=== PATIENT | female | born 2000 | race Caucasian/White ===

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

== ENCOUNTER 2022-08-28 12:49 | Emergency (ER) | payer BC, OTHER ==
[2022-08-28] MEDS ORDERED: TRANEXAMIC ACID 1,000 MG/10 ML VIAL MISCELLANE ONE (13:31)
[2022-08-28] MEDS ORDERED: OXYMETAZOLINE 0.05% NASL SPRAY 1 SPRAY BOTTLE NASAL STA (13:31)
--- NOTE | 2022-08-28 14:07 | ED ---
ENT HPI - General Chief complaint: ENT Stated complaint: epistaxis Time Seen by Provider: 08/28/22 13:13 Source: patient Mode of arrival: ambulatory Limitations: no limitations - History of Present Illness Initial comments: 21-year-old female who presents emergency department reporting nosebleed. Sudden onset today while at work at 11:20 AM. States that she placed compression to the site however nosebleed continued for over 2 hours. She does get frequent nosebleeds. Denies any trauma. Has been sitting with a humidifier in room. Has never seen an ENT. She denies any recent upper respiratory infections. Does not take any blood thinners. No history of blood clotting disorders. Bleeding has stopped upon my exam. No other alleviating, preci pitating or modifying factors - Related Data Home Medications Medication Instructions Recorded Confirmed Etonogestrel [Nexplanon] 1 implant SQ [id number] 04/14/20 08/28/22 Allergies Allergy/AdvReac Type Severity Reaction Status Date / Time amoxicillin [From Augmentin] Allergy Itching Verified 08/28/22 14:02 clavulanic acid Allergy Itching Verified 08/28/22 14:02 [From Augmentin] Review of Systems ROS Statement: Those systems with pertinent positive or pertinent negative responses have been documented in the HPI. ROS Other: All systems not noted in ROS Statement are negative. Past Medical History Past Medical History: No Reported History Additional Past Medical History / Comment(s): IBS History of Any Multi-Drug Resistant Organisms: None Reported Past Surgical History: No Surgical Hx Reported Past Anesthesia/Blood Transfusion Reactions: No Reported Reaction Past Psychological History: No Psychological Hx Reported Smoking Status: Never smoker Past Alcohol Use History: None Reported Past Drug Use History: None Reported - Past Family History Mother Family Medical History: No Reported History General Exam Limitations: no limitations General appearance: alert, in no apparent distress Head exam: Present: atraumatic, normocephalic, normal inspection Eye exam: Present: normal appearance, PERRL, EOMI. Absent: scleral icterus, conjunctival injection, periorbital swelling ENT exam: Present: other (Prominent vasculature bilateral nares with mild oozing. No posterior pharyngeal bleeding. No pulsatile bleeding) Neck exam: Present: normal inspection Respiratory exam: Present: normal lung sounds bilaterally. Absent: respiratory distress, wheezes, rales, rhonchi, stridor Cardiovascular Exam: Present: regular rate, normal rhythm, normal heart sounds. Absent: systolic murmur, diastolic murmur, rubs, gallop, clicks Psychiatric exam: Present: normal affect, normal mood Course Vital Signs 08/28/22 08/28/22 12:58 14:17 Temperature 98.1 F 97.6 F Pulse Rate 111 H 110 H Respiratory 20 16 Rate Blood Pressure 119/82 114/73 O2 Sat by Pulse 99 100 Oximetry Medical Decision Making - Medical Decision Making Was pt. sent in by a medical professional or institution ([facility], [facility], urgent care, hospital, or residential...) When possible be specific @ -No Did you speak to anyone other than the patient for history (EMS, parent, family, police, friend...)? What history was obtained from this source @ -No Did you review nursing and triage notes (agree or disagree)? Why? @ -I reviewed and agree with nursing and triage notes Were old charts reviewed (outside hosp., previous admission, EMS record, old EKG, old radiological studies, urgent care reports/EKG's, residential records)? Report findings @ -No old charts were reviewed Differential Diagnosis (chest pain, altered mental status, abdominal pain women, abdominal pain men, vaginal bleeding, weakness, fever, dyspnea, syncope, headache, dizziness, GI bleed, back pain, seizure, CVA, palpatations, mental health, musculoskeletal)? @ -trauma, clotting disorder, nasal dryness, spontaneous epistaxis EKG interpreted by me (3pts min.). @ -Not done X-rays interpreted by me (1pt min.). @ -None done CT interpreted by me (1pt min.). @ -None done U/S interpreted by me (1pt. min.). @ -None done What testing was considered but not performed or refused? (CT, X-rays, U/S, labs)? Why? @ -None What meds were considered but not given or refused? Why? @ -None Did you discuss the management of the patient with other professionals (professionals i.e. [facility] Benav[facility]z, [facility], lab, RT, psych nurse, child protective services social worker, tube coverer, teacher, workplace rehabilitation officer, pillowcase turner)? Give summary @ -No Was smoking cessation discussed for >3mins.? @ -No Was critical care preformed (if so, how long)? @ -No Were there social determinants of health that impacted care today? How? (Homelessness, low income, unemployed, alcoholism, drug addiction, transportation, low edu. Level, literacy, decrease access to med. care, [facility], rehab)? @ -No Was there de-escalation of care discussed even if they declined (Discuss DNR or withdrawal of care, Hospice)? DNR status @ -No What co-morbidities impacted this encounter? (DM, HTN, Smoking, COPD, CAD, Cancer, CVA, ARF, Chemo, Hep., AIDS, mental health diagnosis, sleep apnea, morbid obesity)? @ -None Was patient admitted / discharged? Hospital course, mention meds given and route, prescriptions, significant lab abnormalities, going to OR and other pertinent info. @ -Upon arrival patient is placed in room 32. Thorough history and physical exam was performed. There is some slight oozing bilaterally however patient has no romero bleeding at this time. She is able to get up and ambulate without any bleeding. I did apply some Afrin in the nose as well as some TXA. She will be given referral to ENT. Instructed to continue using the humidifier. Purchase bacitracin and lightly apply on the inside of the nose to keep it moist. Follow-up for further treatment options. Patient was agreeable to this and discharged home in stable condition Undiagnosed new problem with uncertain prognosis? @ -No Drug Therapy requiring intensive monitoring for toxicity (Heparin, Nitro, Insulin, Cardizem)? @ -No Were any procedures done? @ -No Diagnosis/symptom? @ -acute bilateral anterior epistaxis Acute, or Chronic, or Acute on Chronic? @ -acute Uncomplicated (without systemic symptoms) or Complicated (systemic symptoms)? @ -uncomplicated Side effects of treatment? @ -No Exacerbation, Progression, or Severe Exacerbation? @ -No Poses a threat to life or bodily function? How? (Chest pain, [place], [place], pneumonia, PE, COPD, DKA, ARF, appy, cholecystitis, CVA, Diverticulitis, Homicidal, Suicidal, threat to staff... and all critical care pts) @ -No Disposition Clinical Impression: Epistaxis Disposition: HOME SELF-CARE Condition: Stable Instructions (If sedation given, give patient instructions): Nosebleed (ED) Additional Instructions: Next time you have a nosebleed, please place compression to the site for 20 minutes. Use the Afrin. Follow up with the ENT for further treatment options Is patient prescribed a controlled substance at d/c from ED?: No Referrals: Sergei Mejia MD [Primary Care Provider] - 1-2 days Romero Francis DO [Doctor of Osteopathic Medicine] - 1-2 days Time of Disposition: 14:07
[2022-08-28 14:19] VITALS: BP 114/73; PULSE 110; RESP 16; TEMP 97.6
== END 2022-08-28 14:19 | disposition home or self-care (01) ==
LOC: EC 12:49
DX: R04.0 Epistaxis (principal); Z88.0 Allergy status to penicillin; Z88.1 Allergy status to other antibiotic agents
CPT/HCPCS: 99283

== ENCOUNTER → 2022-10-25 | Outpatient (CLI) | payer BC, OTHER ==
--- NOTE | 2022-10-25 08:29 | US ---
EXAMINATION TYPE: US abdomen complete DATE OF EXAM: 10/25/2022 COMPARISON: Gallbladder FEBRUARY 05, 2019 CLINICAL INDICATION: Female, 22 years old with history of R10.9 ABD PAIN; Abn liver enzymes TECHNIQUE: Multiple sonographic images of the abdomen are obtained. FINDINGS: EXAM MEASUREMENTS: Liver Length: 12.3 cm Gallbladder Wall: .2 cm CBD: .3 cm Spleen: 10.1 cm Right Kidney: 9.4 x 3.6 x 5.2 cm Left Kidney: 10.3 x 5.1 x 4.2 cm PROCESS ENGINEERING INTERN NOTES: Pancreas: wnl Liver: wnl Gallbladder: wnl Evidence for sonographic San's sign: No CBD: wnl Spleen: wnl Right Kidney: No hydronephrosis or masses seen Left Kidney: No hydronephrosis or masses seen Upper IVC: wnl Abd Aorta: wnl The visualized liver is homogenous. The intrahepatic portion of the IVC and visualized abdominal aor ta are within normal limits. There is no evidence of shadowing mobile cholelithiasis. Common bile d uct is unremarkable. The visualized portions of the pancreas are homogenous. The spleen is unremark able. Kidneys are symmetric and free of hydronephrosis. No renal lesions are seen. IMPRESSION: No acute findings are evident. No significant change from prior.
== END | disposition home or self-care (01) ==
LOC: RADUSWWP 07:32
PROVIDERS: ATTEND Internal Medicine Geriatric Medicine
DX: R10.9 Unspecified abdominal pain (principal)
CPT/HCPCS: 76700